=== PATIENT | male | born 1975 | race African-American/Black ===

== ENCOUNTER 2017-09-14 15:41 | Emergency (ER) | payer SELFPAY ==
[~2017-09-14] VITALS: Ht 188 cm; Wt 87.0 kg
[~2017-09-14 15:41] MED LIST: 1-ME1LIQ PO
[2017-09-14 15:59] VITALS: BP 165/92; PULSE 74; RESP 16; TEMP 98.6; O2SAT 100
[2017-09-14] MEDS ORDERED: CLOB0.05 TOPICAL (18:00)
--- NOTE | 2017-09-14 18:04 | PD ---
HPI Chief Complaint: Skin Problem Time Seen by Provider: 16:59 Travel History International Travel<30 days: No Contact w/Intl Traveler<30days: No Traveled to known affect area: No History of Present Illness HPI 41-year-old male presents to the ED for evaluation of 1 year history of rash of bilateral hands and lower extremities. Patient states the rash has been worsening over the last 3 months. Endorses itching associated with the rash. States that it starts out as pustules with milky fluid, pop and then become dark areas on the skin. He denies any significant medical history and takes no daily medications. Denies fever, chills, nausea, vomiting, cold or flu symptoms , dysuria, penile discharge. He can identify no new exposures to detergents, fragrances, etc. He works as a zain by trade. PFSH Past Medical History Diminished Hearing: No Hypertension: Yes Social History Alcohol Use: Yes (4 DRINKS PER DAY) Tobacco Use: Yes (3 CIGS PER DAY) Substance Use: Yes (marijauna) Allergies-Medications (Allergen,Severity, Reaction): Coded Allergies: No Known Allergies (Verified Adverse Reaction, Unknown, 09/14/17) Reported Meds & Prescriptions Reported Meds & Active Scripts Active Clobetasol Propionate 0.05 % Oint...g. 2 Applic TOPICAL BID 30 Days Review of Systems Except as stated in HPI: all other systems reviewed are Neg Physical Exam Narrative GENERAL: Well-nourished, well-developed -[place] male no acute distress. SKIN: Focused skin assessment warm/dry. There is a dense, vesicular, dark, nonblanching rash rare areas of superficial desquamation encompassing bilateral hands, interdigital spaces, palms, extending to the distal wrist. Patient has similar though less dense rash of the bilateral lower extremities, especially the lateral aspects of the feet. HEAD: Normocephalic. EYES: No scleral icterus. No injection or drainage. NECK: Supple, trachea midline. No JVD or lymphadenopathy. CARDIOVASCULAR: Regular rate and rhythm without murmurs, gallops, or rubs. RESPIRATORY: Breath sounds equal bilaterally. No accessory muscle use. GASTROINTESTINAL: Abdomen soft, non-tender, nondistended. MUSCULOSKELETAL: No cyanosis, or edema. BACK: Nontender without obvious deformity. No CVA tenderness. Data Data Last Documented VS Vital Signs Date Time Temp Pulse Resp B/P (MAP) Pulse Ox O2 Delivery O2 Flow Rate FiO2 09/14/17 15:59 98.6 74 16 165/92 (116) 100 Orders Orders Dexamethasone Inj (Decadron Inj) (09/14/17 18:15) Ed Discharge Order (09/14/17 18:04) MDM Medical Decision Making Medical Screen Exam Complete: Yes Emergency Medical Condition: Yes Differential Diagnosis contact dermatitis versus eczema versus viral exanthem versus verruca versus STD versus other Narrative Course 41-year-old male presents to the ED for evaluation of 1 year history of rash of bilateral hands and lower extremities. Endorses itching associated with the rash. States that it starts out as pustules with milky fluid, pop and then become dark areas on the skin. He denies any significant medical history and takes no daily medications. Denies fever, chills, nausea, vomiting, cold or flu symptoms, dysuria, penile discharge. He can identify no new exposures to detergents, fragrances, etc. He works as a zain by trade. Vitals reviewed. Physical exam consistent with dyshidrotic eczema. Patient was administered a single dose of IM dexamethasone and prescribed clobetasol ointment twice daily 30 days. Patient was given detailed care instructions, instructed to follow-up with the senior pl sql developer, avoid exposure to concrete dust, wet environments. He indicated understanding of instructions and is agreeable to care plan. The patient is stable and discharged home. Diagnosis Primary Impression: Dyshidrotic eczema Referrals: Policy Writer Typist Additional Instructions: Keep the hands dry as possible during the daytime. Apply ointment twice a day for one month beginning tonight. At nighttime apply the ointment, then cover with Vaseline, then cover with cotton gloves and socks. Avoid exposure to concrete and wet hands. Follow-up with a senior pl sql developer for further evaluation. Return to the ED for worsening symptoms or any urgent or emergent medical condition. Med/Other Pt SpecificInfo: Prescription(s) given Scripts Clobetasol Propionate (Clobetasol Propionate) 0.05 % Oint...g. 2 APPLIC TOPICAL BID for Rash for 30 Days, #30 GM Prov: Lluvia Cueva Perla CAMPBELL 09/14/17 Disposition: 01 DISCHARGE HOME Condition: Stable Tessie Maher September 14, 2017 18:04
[2017-09-14] MEDS ORDERED: DEXAMETHASONE SOD PHOS 20 MG/5 ML VIAL IM ONE (18:15)
== END 2017-09-14 18:23 | disposition home or self-care (01) ==
LOC: NEPK 15:41
DX: L30.1 Dyshidrosis [pompholyx] (principal); F17.210 Nicotine dependence, cigarettes, uncomplicated; F12.90 Cannabis use, unspecified, uncomplicated
CPT/HCPCS: 96372